=== PATIENT | male | born 1990 | race Caucasian/White ===

== ENCOUNTER 2020-07-23 08:11 | Day surgery (SDC) | payer OTHER ==
[~2020-07-23] VITALS: Ht 172.7 cm; Wt 70.3 kg
[2020-07-23 08:36] VITALS: BP 113/82
--- NOTE | 2020-07-23 18:35 | NUR ---
P.T. NOTES P.T. EVAL COMPLETED; REFER TO EVAL FOR DETAILS.
[2020-07-23 20:03] VITALS: BP 105/71
== END 2020-07-23 19:40 | disposition home or self-care (01) ==
LOC: DS 08:11 → OR 08:11 → DS 19:40
PROVIDERS: ATTEND Student in an Organized Health Care Education/Training Program
DX: M16.12 Unilateral primary osteoarthritis, left hip (principal); M87.852 Other osteonecrosis, left femur
CPT/HCPCS: C1776; J0131; J0690; J1170; J1885; J2704; J3490; J7120